=== PATIENT | female | born 1960 | race Two or more races ===

== ENCOUNTER 2023-01-01 08:48 | Observation (INO) ==
--- NOTE | 2022-11-09 09:16 | PAT Medication Instructions ---
Medication Instructions Date of Service November 09, 2022 Home Medications uonoq-w-kgdavniyvhcco 400 unit tablet (Beano) 400 unit PO 5XD PRN heartburn/indigestion aspirin 81 mg capsule 81 mg PO HS escitalopram oxalate 10 mg tablet (Lexapro) 10 mg PO HS fenofibrate nanocrystallized 145 mg tablet (Tricor) 145 mg PO QAM levothyroxine 50 mcg tablet (Synthroid) 50 mcg PO QAM lorazepam 0.5 mg tablet 0.5 mg PO BID PRN Anxiety metoprolol succinate 100 mg tablet,extended release 24 hr 100 mg PO QAM nifedipine 60 mg tablet,extended release 60 mg PO HS 0 trazodone 100 mg tablet 100 mg PO HS venlafaxine 150 mg capsule,extended release 24 hr 150 mg PO QDL Continue as directed venlafaxine 150 mg capsule,extended release 24 hr 150 mg PO QDL STOP taking 48 hours before surgery fenofibrate nanocrystallized 145 mg tablet (Tricor) 145 mg PO QAM DO NOT take the morning of surgery zodcp-d-oxoyrennidipo 400 unit tablet (Beano) 400 unit PO 5XD PRN heartburn/indigestion Take morning of surgery With a small sip of water, OTHERWISE NOTHING TO EAT OR DRINK AFTER MIDNIGHT: levothyroxine 50 mcg tablet (Synthroid) 50 mcg PO QAM lorazepam 0.5 mg tablet 0.5 mg PO BID PRN Anxiety (if needed) metoprolol succinate 100 mg tablet,extended release 24 hr 100 mg PO QAM Take evening before surgery ibceu-y-cdztklnjtaqdt 400 unit tablet (Beano) 400 unit PO 5XD PRN heartburn/indigestion (if needed) aspirin 81 mg capsule 81 mg PO HS (unless surgeon directed otherwise) escitalopram oxalate 10 mg tablet (Lexapro) 10 mg PO HS lorazepam 0.5 mg tablet 0.5 mg PO BID PRN Anxiety (if needed) nifedipine 60 mg tablet,extended release 60 mg PO HS trazodone 100 mg tablet 100 mg PO HS Other Notes If you have any questions please call us at [phone] or [phone] or [phone] or [phone]
--- NOTE | 2022-11-20 12:32 | Anesthesiology Consultation ---
Date of Service November 20, 2022 Assessment & Plan (1) Encounter for pre-operative examination: Plan - awaiting [facility] JEANE Polk cardiology response to optimization note. - pt reports is scheduled to have pacemaker battery replaced 12/2022 and is inquiring if surgery needs postponed until after pacemaker battery. Surgeon's office made aware, optimization note sent to cardiology. - Casiano pacemaker. - Outpatient joint assessment: Patient is currently scheduled for inpatient pathway. If re-evaluated pending system levels during current pandemic/surgeon requests outpatient pathway, patient is not recommended candidate for outpatient joint program from anesthesia standpoint, pt and her express they prefer she remain in hospital for overnight stay. Chart Review Chart Review: Pending: Refer to Additional Notes / Consult section and Patient seen in Pre Admission Testing Teaching & Discussion Pre-Anesthesia Teaching/Discussion Notes: Instructed NPO after midnight before surgery, except medications with 15 cc of water. Medication instructions provided according to the PAT guidelines. History Surgery Operation Date: 01/01/23 08:10 Proposed Procedures p Right Total Knee Arthroplasty - Brandyn Gallego DO Height/Weight Height: 4 ft 11 in Weight: 57.606 kg Allergies Allergy/AdvReac Type Severity Reaction Status Date / Time ibuprofen AdvReac Intermediate gastric Verified 11/08/22 14:21 ulcer Medications Home Medications Medication Instructions Recorded Confirmed Last Taken hcggx-d-ogtubduhsjaej 400 unit 400 unit PO 5XD PRN 11/08/22 11/08/22 Unknown tablet (Beano) heartburn/indigestion aspirin 81 mg capsule 81 mg PO HS 11/08/22 11/08/22 Unknown escitalopram oxalate 10 mg tablet 10 mg PO HS 11/08/22 11/08/22 Unknown (Lexapro) fenofibrate nanocrystallized 145 145 mg PO QAM 11/08/22 11/08/22 Unknown mg tablet (Tricor) levothyroxine 50 mcg tablet 50 mcg PO QAM 11/08/22 11/08/22 Unknown (Synthroid) lorazepam 0.5 mg tablet 0.5 mg PO BID PRN Anxiety 11/08/22 11/08/22 Unknown metoprolol succinate 100 mg 100 mg PO QAM 11/08/22 11/08/22 Unknown tablet,extended release 24 hr nifedipine 60 mg tablet,extended 60 mg PO HS 11/08/22 11/08/22 Unknown release trazodone 100 mg tablet 100 mg PO HS 11/08/22 11/08/22 Unknown venlafaxine 150 mg 150 mg PO QDL 11/08/22 11/08/22 Unknown capsule,extended release 24 hr Past Medical History Medical History Anxiety Depression Diverticular disease hx diverticulitis-last episode > 5 yrs ago GERD (gastroesophageal reflux disease) rare, stable per pt Hx of gastric ulcer r/t ibuprofen (~2016) Hyperlipidemia Hypertension variable per pt Hypothyroidism Pacemaker (st epifanio device) first placed ~2002 --> battery changed ~2012. last checked June [address] [facility]. follows with [facility]. reports she is scheduled for the battery change in December 2022. Patient denies h/o stroke, seizures, heart attack, heart failure, DM, blood clots or blood transfusions. Exercise / Class Metabolic Activity III < 4 Walking/Shop/Light housework (denies chest discomfort or shortness of breath with usual activities; shortness of breath with 1 FOS due to knee dysfunction) Past Family History Family History Other No family history of adverse response to anesthesia Past Surgical History Surgical History History of cataract surgery bilateral History of colonoscopy History of esophagogastroduodenoscopy (EGD) S/P cardiac pacemaker procedure ~2002 d/t dizziness & syncope + battery change done ~[address] [facility] S/P carpal tunnel release bilateral Past Anesthesia History No Hx of Anesthesia Complications and No Family Hx of Anesthesia Complications History of PONV No Hx of PONV and No Hx of Motion Sickness Social History Smoking Status: Never smoker tobacco type: smokeless tobacco Do You Dip or Chew Tobacco: Yes (quit in 2020) Hx Alcohol Use: No Hx Substance Use: No substance use type: does not use Review of Systems Mild snoring, denies witnessed apneas. Patient denies chest pain, reflux, fever, chills, cough, wheezing, or palpitations. Physical Exam Vital Signs Vitals BP 141/82 P 60 TEMP 98.5 SP02 98% on RA RESP 17 Physical Full cervical extension range of motion without pain TMD 3.5 finger breadths Mallampati Score 2 Dentition: repaired front upper tooth, denies chipped or loose teeth, caps/crowns, implants or bridges Lungs: normal respiratory effort. Good air movement, clear throughout to auscultation, no adventitious breath sounds Cardiac: regular rate and rhythm, no murmurs noted Carotid arteries: negative bruit bilat Lab Results Anesthesia Preop Results Results Anesthesia Widget: WBC 6.04 K/ul (4.8-10.8) 11/20/22 Hgb 11.5 g/dl (12.0-16.0) L 11/20/22 Hct 34.5 % (37.0-47.0) L 11/20/22 Plt 529 K/uL (130-400) H 11/20/22 Na 136 mmol/L (136-145) 11/20/22 K 4.6 mmol/L (3.5-5.1) 11/20/22 Cl 106 mmol/L (98-107) 11/20/22 CO2 25 mmol/L (21-32) 11/20/22 BUN 27 mg/dl (6-23) H 11/20/22 Creat 0.93 mg/dl (0.6-1.2) 11/20/22 Glucose Level 104 mg/dl (70-99(Fasting)) H 11/20/22 PT 10.5 Seconds (9.0-12.0) 11/20/22 PTT 26.7 Seconds (21.0-31.0) 11/20/22 INR 1.0 (0.9-1.1) 11/20/22 Blood Type B Positive 11/20/22 Antibody Screen NEGATIVE 11/20/22 Testing Electrocardiogram Date: 11/21/22 Atrial paced rhythm, rate 60 bpm Chest X-Ray Date: 11/20/22 1. No active disease in the chest. 2. A cardiac pacemaker is in place. There is no radiographic evidence of congestive failure. Other Testing Pacemaker report 09/26/22 Casiano Mode DDDR AP 43% YARD ASSISTANT < 1% PMT has occurred COVID-19 Risk Screen Screening Information COVID-19 Screen Date: 11/20/22 Exposure 21 Days Family/Household +COVID Last 21 Days: No Exposure 10 Days Any COVID Exposure Last 10 Days: No Symptoms Last 10 Days Experienced COVID Sx Last 10 Days: No + COVID 0-90 Days COVID + in Last 0-90 Days: No
--- NOTE | 2022-12-26 17:15 | History & Physical Report ---
Date of Service December 26, 2022 Assessment & Plan (1) Osteoarthritis of right knee: We will proceed with a right total knee arthroplasty. Postoperatively she will be started on aspirin for DVT prophylaxis and kept overnight in the hospital for postop medical management. She plans to have the hospital set up home health before discharge. History of Present Illness Chief Complaint: Osteoarthritis of the right knee. Primary Care Provider: Arsh Tavarez M.D. Faviola is a pleasant 62-year-old female who is been doing with chronic increasing right knee pain. X-rays and clinical examination been diagnostic for advanced osteoarthritis of the right knee. After failing conservative treatment, she has elected to proceed with a right total knee arthroplasty.. Allergies Allergy/AdvReac Type Severity Reaction Status Date / Time ibuprofen AdvReac Intermediate gastric Verified 11/08/22 14:21 ulcer Home Medications Medication Instructions Recorded Confirmed Type pffun-n-dnnhqvsbjrtcw 400 unit 400 unit PO 5XD PRN 11/08/22 11/08/22 History tablet (Beano) heartburn/indigestion aspirin 81 mg capsule 81 mg PO HS 11/08/22 11/08/22 History escitalopram oxalate 10 mg tablet 10 mg PO HS 11/08/22 11/08/22 History (Lexapro) fenofibrate nanocrystallized 145 145 mg PO QAM 11/08/22 11/08/22 History mg tablet (Tricor) levothyroxine 50 mcg tablet 50 mcg PO QAM 11/08/22 11/08/22 History (Synthroid) lorazepam 0.5 mg tablet 0.5 mg PO BID PRN Anxiety 11/08/22 11/08/22 History metoprolol succinate 100 mg 100 mg PO QAM 11/08/22 11/08/22 History tablet,extended release 24 hr nifedipine 60 mg tablet,extended 60 mg PO HS 11/08/22 11/08/22 History release trazodone 100 mg tablet 100 mg PO HS 11/08/22 11/08/22 History venlafaxine 150 mg 150 mg PO QDL 11/08/22 11/08/22 History capsule,extended release 24 hr Past Med/Surg History Medical History Anxiety Depression Diverticular disease hx diverticulitis-last episode > 5 yrs ago GERD (gastroesophageal reflux disease) rare, stable per pt Hx of gastric ulcer r/t ibuprofen (~2016) Hyperlipidemia Hypertension variable per pt Hypothyroidism Pacemaker (st epifanio device) first placed ~2002 --> battery changed ~2012. last checked June 2022 at [facility]. follows with [facility]. reports she is scheduled for the battery change in December 2022. Surgical History History of cataract surgery bilateral History of colonoscopy History of esophagogastroduodenoscopy (EGD) S/P cardiac pacemaker procedure ~2002 d/t dizziness & syncope + battery change done ~2012 at [facility] S/P carpal tunnel release bilateral Family History Other No family history of adverse response to anesthesia Social History Smoking Status: Never smoker Second Hand Exposure: No; Do You Dip or Chew Tobacco: Yes (quit in 2020); Hx Alcohol Use: No Hx Substance Use: No Preferred Language: Guamanian Communication Ability: Effective Molecular Physicist Required: No Beliefs That Will Affect Care: Scientology Scientology Beliefs: Orthodoxy -> no pork, no meat/chicken (does eat fish/vegetable) Current Living Situation: Spouse Feels Safe at Home: Yes Assistive Devices: Cane Review of Systems All systems reviewed & are unremarkable except as noted in HPI & below. Physical Exam Physical examination of the right knee shows she has a slight varus deformity. She has range of motion 0 to 120 degrees. She has pain over the distal medial femoral condyle and over the medial joint line.. Constitutional WD/WN, vitals as above Eyes PERRL, conjunctivae normal, anicteric sclerae ENMT external ear and nose normal, oropharynx normal Neck trachea midline, no thyromegaly Respiratory normal respiratory effort, lungs clear to auscultation Cardiovascular RRR, no murmur, no edema Gastrointestinal (Abdomen) normal bowel sounds, soft, nontender, no hepatosplenomegaly Skin no rashes, warm and dry Psychiatric A+Ox3, euthymic affect Results & Data Results & Data Laboratory Results . Diagnostic Findings X-rays of the right knee show advanced osteoarthritis with joint space narrowing, osteophyte formation, and fpgl-[id number] articulation. PG Care Time/CCT Total # of Minutes Spent Total Time Spent with Patient: Total time spent is greater than 50% in coordination of care (as documented) at patient's floor/unit and/or counseling patient: Coding Level of Care Code None Diagnoses Osteoarthritis of right knee M17.11
[~2023-01-01 08:48] MED LIST: ACETAMINOPHEN 500 MG TAB PO SCH; FAMOTIDINE 20 MG TAB PO SCH; GABAPENTIN 300 MG CAP PO SCH; LR 500ML BOLUS, THEN 15ML/HR IV SCH; LR 60ML/HR IV SCH; ORTHO JOINT MIX INFIL SCH; ROPIVACAINE 0.5% 5 MG/ML 30 ML VIAL ONE; TRANEXAMIC ACID 1,000 MG **IV Intra-op IV SCH; ceFAZolin 2000MG 2,000 MG/15 ML SYR IV SCH; dexAMETHasone 4 MG TAB PO SCH
--- NOTE | 2023-01-01 10:26 | History & Physical Bridge Note ---
Date of Service January 01, 2023 History & Physical Bridge Note I have examined the patient, reviewed the History & Physical and in the interval since the performance of the History & Physical I have noted the following changes of clinical significance: no changes noted
[2023-01-01] MEDS ORDERED: ePHEDrine sulfate 50 MG/ML AMP IV PRN (10:36)
[2023-01-01] MEDS ORDERED: HYDROmorphone INJ 2 MG/ML SYR/VIAL IV PRN (10:36)
[2023-01-01] MEDS ORDERED: fentaNYL citrate PF 100 MCG/2 ML VIAL IV PRN (10:36)
[2023-01-01] MEDS ORDERED: ATROPINE SULFATE 0.1 MG/ML 10ML SYR IV PRN (10:36)
[2023-01-01] MEDS ORDERED: ONDANSETRON INJ 2 MG/ML 2 ML VIAL IV PRN ×2 (10:36→14:54)
[2023-01-01] MEDS ORDERED: MIDAZOLAM HCL 1 MG/ML 2ML VIAL ONE ×2 (10:54)
[2023-01-01] MEDS ORDERED: PROPOFOL IV EMULSION 10 MG/ML 20 ML VIAL IV ONE (10:54)
[2023-01-01] MEDS ORDERED: LIDOCAINE 2% 2 ML VIAL/AMP(20MG/ML) INFIL ONE (10:54)
[2023-01-01] MEDS ORDERED: fentaNYL citrate PF 100 MCG/2 ML VIAL ONE (10:54)
[2023-01-01] MEDS: TRANEXAMIC ACID 1,000 MG **IV Pre-op IV SCH ×2 (11:13→11:25)
[2023-01-01] MEDS ORDERED: ORTHO JOINT ANESTHETIC ONE (11:21)
[2023-01-01] MEDS ORDERED: ePHEDrine sulfate 50 MG/ML AMP ONE (11:55)
--- NOTE | 2023-01-01 12:40 | Operative Report ---
PG Post Operative Report Pre & Post Diagnosis Operation Date: 01/01/23 11:00 Pre-Op Diagnosis: 1) Osteoarthritis of right knee: Post-Op Diagnosis: 1) Osteoarthritis of right knee: I identified the patient and participated in the time-out.: Yes Procedure Operation Date: 01/01/23 11:00 Actual Procedures p Right Total Knee Arthroplasty(Right) - Brandyn Gallego DO Surgeon Brandyn Gallego DO Service Order Dispatcher Brandyn Bustos PA-C Estimated Blood Loss 30 Findings Consistent with Post-Op Diagnosis Specimens Right femoral tibial bone Description of Procedure Implants used: I used a Francisca Persona total knee arthroplasty system with a size 4 narrow femur, C tibia, 28 oval patella, and a size 13 medial congruent polyethylene bearing. All components were cemented in place with Biomet cement. Brissa arrived [facility] for the above procedure. She was seen in the preoperative holding area and the operative extremity was identified and signed. She was given a preoperative antibiotic, TXA, a spinal anesthetic and an adductor nerve block. She was taken back to the operating room and laid on the table in supine position. She was given basic sedation. The operative knee was then prepped and draped in sterile fashion. A timeout was done, and the patient and the operative extremity was properly identified. A midline incision was made directly over the patella. Dissection was taken down to the extensor mechanism. A midvastus arthrotomy was used. The medial retinaculum was released and the fat pad was mostly excised. The knee was flexed and the ACL, PCL, and meniscus were removed. A drill was sent down the center of the femoral canal followed by an intramedullary olivia. Off that olivia a distal femoral cutting block was placed. 9 mm was resected off the distal femur at 5 of valgus. A posterior referencing AP sizing guide was then placed on the distal femur. The femur measured to be a size 4. 2 drill holes were placed in 3 of external rotation. A 4-in-1 cutting block was then impacted into place. Anterior, posterior, and chamfer cuts were then made. The proximal tibia was then exposed. An external tibial alignment guide was placed. A tibial cut guide was then anchored in place and the proximal tibia was then resected. The posterior aspect of the knee was then opened up and any additional meniscus fragments and osteophytes were removed. The tibia measured to be a size C. The tibial plate was then placed in the appropriate rotation and the tibia was drilled and punched. Trial components were then placed. I used a size 13 medial congruent polyethylene insert. The knee was brought through a full range of motion and felt to be stable. The peg holes for the femoral component were then drilled. The patella was then everted and 9 mm was resected off the posterior aspect of the patella. The patella measured to be a size 28 oval. 3 peg holes were then drilled. A trial patella was placed. The knee was once again brought through a full range of motion and felt to be stable. Trial components were then removed. The surrounding soft tissues were injected with 100 cc of an orthopedic pain control cocktail. All components were then cemented into place with Biomet cement. The final polyethylene insert was then snapped into place. Once cement was dry the tourniquet was deflated. Hemostasis was obtained. A dilute betadyne lavage was then done for 3 minutes. The joint was then irrigated with normal saline solution. The midvastus arthrotomy was then closed with #1 Vicryl suture. The skin was closed with 2-0 Vicryl, 3-0V lock suture, and clif. A soft compressive dressing was placed. She was then transferred to a hospital bed and taken to the postanesthesia care unit in stable condition. She tolerated the procedure well. Brandyn Bustos PA-C, was present for the entire procedure. He was critical for patient positioning, prepping, draping, retraction exposure, wound closure and application of sterile dressing. I attest to the content of the Intraoperative Record and any orders documented therein. Any exceptions are noted below.
--- NOTE | 2023-01-01 13:29 | XRay Report ---
TWO VIEWS RIGHT KNEE CLINICAL HISTORY: Postoperative examination. FINDINGS: AP and crosstable lateral portable views of the right knee are obtained. A right knee arthr oplasty is in near anatomic alignment. There has been undersurface remodeling of the patella. No acut e fracture is seen. There are expected postoperative changes around the knee including skin clips, so ft tissue edema, and subcutaneous gas. IMPRESSION: Expected postoperative changes status post right knee arthroplasty. No acute fracture is seen. ACT 112: Negative or not required by law. Electronically signed by: Juan M Rothman M.D. 01/01/2023 1:28 PM
--- NOTE | 2023-01-01 13:51 | Anesthesiology Progress Note ---
Date of Service January 01, 2023 Anesthesia Post Procedure Vital Signs Vital Signs: Temp Pulse Resp BP Pulse Ox O2 Del Method O2 Flow Rate 01/01/23 13:40 71 20 108/60 92 Room Air 01/01/23 13:30 36.4 C L 68 19 106/57 L 92 Room Air 01/01/23 13:20 68 19 109/58 L 97 Room Air 01/01/23 13:10 68 19 103/55 L 96 Oxymask 6 01/01/23 13:02 36.1 C L 68 20 103/58 L 94 Oxymask 6 01/01/23 09:48 36.5 C 60 18 123/67 98 Room Air Pain Intensity Right Knee: Pain Intensity: 8 Transfer of Care Handoff Completed per policy Notes Mental Status: alert / awake / arousable and participated in evaluation Patient Amnestic to Procedure: Yes Nausea / Vomiting: adequately controlled Pain: adequately controlled Airway Patency, RR, SpO2: stable & adequate BP & HR: stable & adequate Hydration State: stable & adequate Neuraxial Anesthesia: was administered and sensory block is resolving Anesthetic Complications: no major complications apparent and Pt Satisfied with anesthetic care
[2023-01-01] MEDS ORDERED: MAGNESIUM HYDROXIDE SUSP 30 ML UDC PO PRN (14:54)
[2023-01-01] MEDS ORDERED: HYDROmorphone INJ 0.5 MG/0.5 ML SYR IV PRN (14:54)
[2023-01-01] MEDS ORDERED: METOCLOPRAMIDE HCL INJ 5 MG/ML 2 ML VIAL IV PRN (14:54)
[2023-01-01] MEDS ORDERED: NALOXONE HCL 0.4 MG/1 ML VIAL/CARP IV PRN (14:54)
[2023-01-01] MEDS ORDERED: oxyCODONE HCL IR 5 MG TAB (IMMEDIATE RELEASE) PO PRN (14:54)
[2023-01-01] MEDS ORDERED: bisacodyL 10 MG SUPP PR PRN (14:54)
[2023-01-01] MEDS ORDERED: LORazepam 0.5 MG TAB PO PRN (14:54)
[2023-01-01] MEDS: SODIUM CHLORIDE 0.9% 1000ML 1,000 ML IV SCH (15:09)
[2023-01-01] MEDS: ACETAMINOPHEN 500 MG TAB PO SCH ×2 (15:45→21:52)
[2023-01-01] MEDS: KETOROLAC 30 MG/ML VIAL IV SCH (15:46)
[2023-01-01] MEDS: ceFAZolin 2000MG 2,000 MG/15 ML SYR IV SCH (18:25)
[2023-01-01] MEDS: DOCUSATE SODIUM 100 MG CAP PO SCH (20:23)
[2023-01-01] MEDS: ASPIRIN 81 MG ECTAB PO SCH (20:23)
[2023-01-01] MEDS ORDERED: ESCITALOPRAM OXALATE 10 MG TAB PO SCH (21:00)
[2023-01-01] MEDS ORDERED: NIFEdipine EXTENDED REL 30 MG TABCR PO SCH (21:00)
[2023-01-01] MEDS ORDERED: traZODone HCL 100 MG TAB PO SCH (21:00)
[2023-01-01] MEDS ORDERED: SENNA 8.6 MG TAB PO SCH (21:00)
[2023-01-02] MEDS: KETOROLAC 30 MG/ML VIAL IV SCH ×2 (00:45→06:11)
[2023-01-02] MEDS: SODIUM CHLORIDE 0.9% 1000ML 1,000 ML IV SCH (00:45)
[2023-01-02] MEDS: ceFAZolin 2000MG 2,000 MG/15 ML SYR IV SCH (03:44)
[2023-01-02] MEDS: ACETAMINOPHEN 500 MG TAB PO SCH (06:11)
[2023-01-02] MEDS ORDERED: LEVOTHYROXINE SODIUM 50 MCG TABLET PO SCH (06:30)
--- NOTE | 2023-01-02 07:03 | Orthopedic Progress Note ---
Date of Service January 02, 2023 Assessment & Plan (1) Status post right knee replacement: Overall she is doing very well. She is not having much pain in the right knee. She will be seen by physical therapy today for ambulation and range of motion exercises. She is on aspirin for DVT prophylaxis. The nursing staff can change her dressing after physical therapy. She does want to talk to case management about discharge. She is likely orthopedically stable for discharge today. She will follow-up with orthopedics in 2 weeks. Nitin Salmeron was seen and examined at bedside this morning. Overall she is doing very well. She is not having much pain in the right knee. She has been up and ambulating to the bathroom. She has no complaints.. Review of Systems All systems reviewed & are unremarkable except as noted in HPI & below. Physical Exam On physical examination of the right knee, the dressing is clean and dry. Her leg is out full extension. She has active dorsiflexion plantarflexion of her right ankle.. Results & Data Results & Data Laboratory Results . Diagnostic Findings Postoperative x-rays of the right knee show the prosthesis to be in anatomic alignment without any evidence of fracture, desiccation, or loosening. PG Care Time/CCT Total # of Minutes Spent Total Time Spent with Patient: Total time spent is greater than 50% in coordination of care (as documented) at patient's floor/unit and/or counseling patient: Coding Level of Care Code 09332 Post Operative Follow-Up Diagnoses Status post right knee replacement Z96.651
--- NOTE | 2023-01-02 07:04 | Discharge Summary ---
Date of Service January 02, 2023 Admission HPI (Per Admitting) Faviola is a pleasant 62-year-old female who is been doing with chronic increasing right knee pain. X-rays and clinical examination been diagnostic for advanced osteoarthritis of the right knee. After failing conservative treatment, she has elected to proceed with a right total knee arthroplasty.. Admission Exam (Per Admitting) Physical examination of the right knee shows she has a slight varus deformity. She has range of motion 0 to 120 degrees. She has pain over the distal medial femoral condyle and over the medial joint line.. Principal Diagnosis Same as "Discharge Diagnosis" noted below under Discharge Instructions. Discharge Exam On physical examination of the right knee, the dressing is clean and dry. Her leg is out full extension. She has active dorsiflexion plantarflexion of her right ankle.. Discharge Data Procedures Performed Operation Date: 01/01/23 11:00 Actual Procedures p Right Total Knee Arthroplasty(Right) - Brandyn Gallego DO Ordered Studies 01/01/23 11:27 US - OR guided needle placemen Routine Hospital Course (1) Status post right knee replacement: On January 01, 2023 Brissa arrived at [facility] and underwent a right knee replaced without complication. She had a spinal anesthetic. Postoperatively she was started on aspirin for DVT prophylaxis and transferred to the general orthopedic floors. Her hospital course was uneventful. On postop day #1, her vital signs were stable and her pain was well-controlled. She was able to participate well with physical therapy doing ambulation and range of motion exercises. She was then discharged home. She will follow-up orthopedics in 2 weeks. PG Care Time/CCT Total # of Minutes Spent Total Time Spent with Patient: Total time spent is greater than 50% in coordination of care (as documented) at patient's floor/unit and/or counseling patient: Discharge Plan Discharge Items Patient Disposition: Home - Home Health Services Reason For Visit: DJD Right Knee Discharge Diagnosis: Right knee replacement Activity: Per Instructions section Non-emergency contact: Surgeon Call non-emergency contact if: your wound has increased redness and your wound has increased drainage Follow-up/Referrals: Arsh Tavarez M.D. [Primary Care Provider] - Diet: Regular Addtl Attending Provider Instructions: Activity and Therapy Recommendations: * If you are using [facility] then therapy will be provided at your home until they feel you have accomplished all of your goals. * If you are using [facility] then Physical Therapy will be provided until they feel you are ready to start Outpatient Physical Therapy. * If you are not using home therapy then Outpatient Physical Therapy should start about 3-5 days from your day of surgery. Therapy will last about 6-10 weeks * It is important not to put a pillow under your knee when you are relaxing or sleeping. It is just as important to make sure you are getting your knee perfectly straight as it is to regain your knee bend. * You were shown a series of exercises in the hospital. Do these exercises three times each day including the exercises you were shown in physical therapy. * Get up and walk several times each day. For the first four weeks, try not to stand or walk for more than one hour at a time. If you do stand or walk for more than one hour, you will not hurt anything, but your leg will likely swell. * As you feel comfortable, you may change from the walker or crutches to a cane and then to independent walking. Medications: * Narcotic You will likely be sent home from the hospital with a prescription for the narcotic pain medication that worked best throughout your stay. * Aspirin Most patients will be required to take Aspirin 81mg twice a day for 6 weeks after surgery. This is obtained [id number] and a prescription is not necessary. * Other medications may be prescribed for specific circumstances. If you have any questions, please call the office at . * Resume previous home medications unless otherwise instructed TEDs/Elastic Stockings: The white elastic stockings help limit swelling and prevent blood clots from forming in your legs.~ The more you wear them, the more they work. Wear them for six weeks. Dressing Care: The dressing can be changed after physical therapy on postop day #1. Daily dry dressing changes for a few days, especially if the incision is still draining some. If the incision is not draining then you may leave the clif open to air. If there is a little bit of drainage or if the clif are getting stuck on your clothing then cover the incision with a dry dressing. The clif will be removed at your 2 week follow-up appointment. Showering: You may shower 5 days from the day of surgery as long as the incision is no longer draining. You may shower with the clif exposed. Let soapy water run over the clif and pat them dry. Do not scrub or soak the incision. Things To Watch For: * Drainage from the incision site that occurs more than one week after your surgery. * Increased redness at the incision site. * Fever above 102 degrees Fahrenheit. * Unusual chest pain or shortness of breath. * Call [facility] at with any of the above problems Follow-Up Visit: Follow-up with Dr. Gallego's PA (Brandyn Bustos) 2-3 weeks after your day of surgery . He will remove your clif and answer any questions. If you have any additional questions or concerns, Dr Gallego is usually in the office at the same time and will be available An appointment was probably scheduled when you signed-up for surgery in the office. If you have any questions call Office Instructions: More detailed instructions as well as Frequently Asked Questions were provided in a folder by our office when you signed-up for surgery. Please review these instructions when you get home. If you have any further questions or concerns, please feel free to call the office at [phone] Pending Studies at Discharge: No Stand-Alone Forms: My [facility], Smoking Cessation Medications and DC Order Prescriptions: New oxycodone 5 mg Tablet 5 mg PO Q4H PRN (Reason: pain) Qty: 30 0RF Continued Beano 400 unit Tablet 400 unit PO 5XD PRN (Reason: heartburn/indigestion) venlafaxine [Effexor XR] 150 mg Capsule,Extended Release 24hr 150 mg PO QDL lorazepam 0.5 mg Tablet 0.5 mg PO BID PRN (Reason: Anxiety) trazodone 100 mg Tablet 100 mg PO HS levothyroxine [Synthroid] 50 mcg Tablet 50 mcg PO QAM escitalopram oxalate [Lexapro] 10 mg Tablet 10 mg PO HS fenofibrate nanocrystallized [Tricor] 145 mg Tablet 145 mg PO QAM metoprolol succinate 100 mg Tablet Extended Release 24 Hr 100 mg PO QAM nifedipine 60 mg Tablet Extended Release 60 mg PO HS Changed aspirin 81 mg Capsule 81 mg PO BID 42 Days Qty: 0 0RF Admission Data Admit Date/Time: 01/01/23 13:11 Attending Provider: Brandyn Gallego Admit Provider: Brandyn Gallego Primary Care Provider: Arsh Tavarez
[2023-01-02] MEDS ORDERED: dexAMETHasone 4 MG TAB PO SCH (08:00)
[2023-01-02] MEDS: DOCUSATE SODIUM 100 MG CAP PO SCH (08:12)
[2023-01-02] MEDS: ASPIRIN 81 MG ECTAB PO SCH (08:13)
[2023-01-02] MEDS ORDERED: MULTIVITAMIN TAB PO SCH (09:00)
[2023-01-02] MEDS ORDERED: METOPROLOL SUCC 50MG EXT REL TAB PO SCH (09:00)
[2023-01-02] MEDS ORDERED: FENOFIBRATE NANOCRYSTALLIZED 145 MG TABLET PO SCH (09:00)
[2023-01-02] MEDS ORDERED: VENLAFAXINE HCL XR 150 MG CAPXR PO SCH (11:30)
== END 2023-01-02 12:24 | disposition home health service (06) ==
LOC: ASU 08:48 → 3E 08:48

== ENCOUNTER 2025-01-16 05:25 | Observation (INO) ==
--- NOTE | 2024-12-15 15:31 | PAT Medication Instructions ---
Medication Instructions Date of Service December 15, 2024 Home Medications Medication Instructions Recorded aspirin 81 mg capsule 81 mg PO BID 42 days #0 caps 01/02/23 oxycodone 5 mg tablet 5 mg PO Q4H PRN pain #30 tabs 01/02/23 Medication List: wsihe-y-bsrtjsgazyoeq 400 unit tablet (Beano) 400 unit PO 5XD PRN heartburn/indigestion escitalopram oxalate 10 mg tablet (Lexapro) 10 mg PO HS fenofibrate nanocrystallized 145 mg tablet (Tricor) 145 mg PO QAM levothyroxine 50 mcg tablet (Synthroid) 50 mcg PO QAM lorazepam 0.5 mg tablet 0.5 mg PO BID PRN Anxiety metoprolol succinate 100 mg tablet,extended release 24 hr 100 mg PO QAM nifedipine 60 mg tablet,extended release 60 mg PO HS trazodone 100 mg tablet 100 mg PO HS venlafaxine 150 mg capsule,extended release 24 hr (Effexor XR) 150 mg PO QDL aspirin 81 mg capsule 81 mg PO BID oxycodone 5 mg tablet 5 mg PO Q4H PRN pain MEDICATION INSTRUCTIONS: ASK your prescriber and surgeon aspirin 81 mg capsule 81 mg PO BID STOP taking 24 hours before surgery fenofibrate nanocrystallized 145 mg tablet (Tricor) 145 mg PO QAM DO NOT take the morning of surgery ujqou-n-zmnebqmubvith 400 unit tablet (Beano) 400 unit PO 5XD PRN heartburn/indigestion Take morning of surgery With a small sip of water, OTHERWISE NOTHING TO EAT OR DRINK AFTER MIDNIGHT: levothyroxine 50 mcg tablet (Synthroid) 50 mcg PO QAM metoprolol succinate 100 mg tablet,extended release 24 hr 100 mg PO QAM venlafaxine 150 mg capsule,extended release 24 hr (Effexor XR) 150 mg PO QDL ( depending on timing of surgery) lorazepam 0.5 mg tablet 0.5 mg PO BID PRN Anxiety oxycodone 5 mg tablet 5 mg PO Q4H PRN pain Take evening before surgery leuml-o-bbkhxxploffwc 400 unit tablet (Beano) 400 unit PO 5XD PRN heartburn/indigestion nifedipine 60 mg tablet,extended release 60 mg PO HS escitalopram oxalate 10 mg tablet (Lexapro) 10 mg PO HS trazodone 100 mg tablet 100 mg PO HS lorazepam 0.5 mg tablet 0.5 mg PO BID PRN Anxiety oxycodone 5 mg tablet 5 mg PO Q4H PRN pain Other Notes If you have any questions please call us at [phone] or [phone] or [phone] or [phone]
--- NOTE | 2024-12-23 12:33 | Anesthesiology Consultation ---
Date of Service December 23, 2024 Assessment & Plan (1) Encounter for pre-operative examination: - Infectious disease screening: Per assessment on 12/23/24- No known recent infectious disease contacts or current infectious disease symptoms. - Outpatient joint assessment: Pt currently scheduled for inpatient pathway. If surgeon requests review for outpatient joint pathway, patient is not a recommended candidate for outpatient joint program from anesthesia standpoint based on available information. - S/P Right TKA (01/01/23): SAB at L3-4 + regional at [facility] - Cardiology visit (01/24/24): "..She is anticipating a left total knee replacement in June 2024. Proceeding her knee replacement.. Pacemaker checked.. was approaching ROMEO.. Did eventually undergo a generator change.. Since then she has continued to do well.. There were no alerts on her last download.. HTNwellcontrolled.. Return in about 1 year.." Chart Review Chart Review: Acceptable Risk for Surgery and Patient seen in Pre Admission Testing Teaching & Discussion Pre-Anesthesia Teaching/Discussion Notes: Instructed NPO after midnight before surgery,except medications with 15 cc of water. Medication instructions provided according to the PAT guidelines. History Surgery Operation Date: 09/24/23 07:30 Proposed Procedures p Left Total Knee Arthroplasty - Brandyn Gallego DO Operation Date: 01/16/25 07:00 Proposed Procedures p Left Total Knee Arthroplasty - Brandyn Gallgeo DO Height/Weight Height: 4 ft 10 in Weight: 54.5 kg Allergies Allergy/AdvReac Type Severity Reaction Status Date / Time ibuprofen AdvReac Intermediate Gastric Verified 12/17/24 10:13 ulcer Medications Home Medications Medication Instructions Recorded Confirmed Last Taken ebycf-e-tnwhyhuhmlhbq 400 unit 400 unit PO 5XD PRN 11/08/22 12/15/24 2 Weeks Ago tablet (Beano) heartburn/indigestion ~12/18/22 escitalopram oxalate 10 mg tablet 10 mg PO HS 11/08/22 12/15/24 12/31/22 20:30 (Lexapro) fenofibrate nanocrystallized 145 145 mg PO QAM 11/08/22 12/15/24 01/01/23 06:30 mg tablet (Tricor) levothyroxine 50 mcg tablet 50 mcg PO QAM 11/08/22 12/15/24 01/01/23 05:00 (Synthroid) lorazepam 0.5 mg tablet 0.5 mg PO BID PRN Anxiety 11/08/22 12/15/24 12/31/22 20:30 metoprolol succinate 100 mg 100 mg PO QAM 11/08/22 12/15/24 01/01/23 06:30 tablet,extended release 24 hr nifedipine 60 mg tablet,extended 60 mg PO HS 11/08/22 12/15/24 12/31/22 20:30 release trazodone 100 mg tablet 100 mg PO HS 11/08/22 12/15/24 12/31/22 20:30 venlafaxine 150 mg 150 mg PO QDL 11/08/22 12/15/24 12/31/22 20:30 capsule,extended release 24 hr (Effexor XR) aspirin 81 mg capsule 81 mg PO BID 42 days #0 caps 01/02/23 12/15/24 3 Days Ago ~12/29/22 oxycodone 5 mg tablet 5 mg PO Q4H PRN pain #30 tabs 01/02/23 12/15/24 Unknown Past Medical History Medical History Anxiety Depression Diverticular disease GERD (gastroesophageal reflux disease) Rare, stable per patient History of diverticulitis Hx of gastric ulcer R/t ibuprofen (~2016) Hyperlipidemia Hypertension "Variable" per patient Follows [facility] Hypothyroidism Osteoarthritis Pacemaker [employer] device Initial implant 2002, battery change ~2012, Generator change 2022 Follows [facility] Exercise / Class Metabolic Activity III < 4 Walking/Shop/Light housework Past Family History Family History Other No family history of adverse response to anesthesia Past Surgical History Surgical History History of cataract surgery R/L History of colonoscopy History of esophagogastroduodenoscopy (EGD) S/P cardiac pacemaker procedure Initial implant 2002 Battery change ~2012 Generator change 2022 S/P carpal tunnel release R/L Status post right knee replacement Right TKA (01/01/23): SAB at L3-4 + regional at [facility] Past Anesthesia History No Hx of Anesthesia Complications and No Family Hx of Anesthesia Complications History of PONV No Hx of PONV and No Hx of Motion Sickness Social History Smoking Status: Never smoker tobacco type: smokeless tobacco Do You Dip or Chew Tobacco: No (Quit 2020 (tobacco leaf)) Hx Alcohol Use: No Hx Substance Use: No substance use type: does not use Review of Systems Patient denies chest pain, shortness of breath, fever, chills, cough, wheezing, palpitations. Physical Exam Vital Signs BP 146/68 P 62 TEMP 98.2 SP02 95%RA RESP 16 Physical Full cervical extension range of motion. Full TMJ range of motion. TMD 3 finger breaths Mallampati Score II Dentition: intact Lungs: clear throughout to auscultation Cardiac: regular rate, regular rhythm with occasional extra beats, no murmurs noted Spine: normal Carotid arteries: negative bruit Extremities: no LE edema Lab Results Anesthesia Preop Results Results Anesthesia Widget: WBC 6.25 K/ul (4.8-10.8) 12/23/24 Hgb 12.9 g/dl (12.0-16.0) 12/23/24 Hct 38.1 % (37.0-47.0) 12/23/24 Plt 455 K/uL (130-400) H 12/23/24 Na 139 mmol/L (136-145) 12/23/24 K 4.7 mmol/L (3.5-5.1) 12/23/24 Cl 106 mmol/L (98-107) 12/23/24 CO2 25 mmol/L (21-32) 12/23/24 BUN 16 mg/dl (6-23) 12/23/24 Creat 0.88 mg/dl (0.6-1.2) 12/23/24 Glucose Level 84 mg/dl (70-99(Fasting)) 12/23/24 PT 10.4 Seconds (9.0-12.0) 12/23/24 PTT 26 Seconds (21-31) 12/23/24 INR 1.0 (0.9-1.1) 12/23/24 Blood Type B Positive 12/23/24 Antibody Screen NEGATIVE 12/23/24 Testing Electrocardiogram Date: 12/23/24 Atrial-paced rhythm. 60bpm. Chest X-Ray Date: 12/23/24 FINDINGS: A left subclavian pacer is unchanged in position. There is no pneumothorax or pleural effusion. Linear left lower lung densities are unchanged and favor scarring. There is no consolidation to suggest pneumonia. No evidence for pulmonary edema. Cardiomediastinal silhouette is stable. IMPRESSION: No acute cardiopulmonary findings. No change in appearance of the chest. Echocardiogram Date: 12/27/22 LVEF 55-60%. No RWMA. Grade I DD. No LVH. Mild AR. Physiologic HI. Other Testing Pacer check Date: 10/04/24 Battery longevity 53-5.9 years. RAP 72%. RVP 1%. "Appropriate device function"
[~2025-01-16 05:25] MED LIST changes: -ACETAMINOPHEN 500 MG TAB PO SCH; -FAMOTIDINE 20 MG TAB PO SCH; -GABAPENTIN 300 MG CAP PO SCH; +LIDOCAINE 5% OINT 30 GM TUBE ONE; -LR 500ML BOLUS, THEN 15ML/HR IV SCH; -LR 60ML/HR IV SCH; -ORTHO JOINT MIX INFIL SCH; -ROPIVACAINE 0.5% 5 MG/ML 30 ML VIAL ONE; -TRANEXAMIC ACID 1,000 MG **IV Intra-op IV SCH; -ceFAZolin 2000MG 2,000 MG/15 ML SYR IV SCH; -dexAMETHasone 4 MG TAB PO SCH
[2025-01-16] MEDS: LR 60ML/HR IV SCH (06:01)
[2025-01-16] MEDS: LR 500ML BOLUS, THEN 15ML/HR IV SCH (06:01)
[2025-01-16] MEDS: GABAPENTIN 300 MG CAP PO SCH (06:02)
[2025-01-16] MEDS: ACETAMINOPHEN 500 MG TAB PO SCH ×2 (06:02→13:11)
[2025-01-16] MEDS: FAMOTIDINE 20 MG TAB PO SCH (06:02)
[2025-01-16] MEDS: dexAMETHasone**PF** 10 MG/ML VIAL IV SCH (06:02)
[2025-01-16] MEDS ORDERED: BUPIVACAINE 0.25% PF 30 ML VIAL ONE (06:12)
[2025-01-16] MEDS ORDERED: BUPIVACAINE 0.5 % 5 MG/1 ML PF 10ML VIAL ONE (06:13)
[2025-01-16] MEDS ORDERED: ONDANSETRON INJ 2 MG/ML 2 ML VIAL ONE (06:23)
[2025-01-16] MEDS ORDERED: PROPOFOL IV EMULSION 10 MG/ML 20 ML VIAL IV ONE (06:23)
[2025-01-16] MEDS ORDERED: LIDOCAINE 2% 2 ML VIAL/AMP(20MG/ML) INFIL ONE (06:23)
[2025-01-16] MEDS ORDERED: MIDAZOLAM HCL 1 MG/ML 2ML VIAL ONE (06:23)
[2025-01-16] MEDS ORDERED: ATROPINE SULFATE 0.1 MG/ML 10ML SYR IV PRN (06:39)
[2025-01-16] MEDS: TRANEXAMIC ACID 1,000 MG **IV Pre-op IV SCH (06:39)
[2025-01-16] MEDS ORDERED: ONDANSETRON INJ 2 MG/ML 2 ML VIAL IV PRN (06:39)
--- NOTE | 2025-01-16 06:49 | History & Physical Bridge Note ---
Date of Service January 16, 2025 History & Physical Bridge Note I have examined the patient, reviewed the History & Physical and in the interval since the performance of the History & Physical I have noted the following changes of clinical significance: no changes noted
[2025-01-16] MEDS ORDERED: PHENYLEPHRINE 100MCG/ML 5ML SYR ONE (07:11)
[2025-01-16] MEDS ORDERED: PHENYLEPHRINE HCL 10 MG/ML VIAL ONE (07:13)
[2025-01-16] MEDS: ORTHO JOINT ANESTHETIC ONE (07:50)
[2025-01-16] MEDS: ROPIV 0.5% 246mg, Ketorolac 30mg, EPINEPHrine 0.5mg in NSS INFIL SCH (08:10)
--- NOTE | 2025-01-16 09:40 | XRay Report ---
XR knee LT 1 or 2V routine CLINICAL HISTORY: Surgical Post Op COMPARISON: None FINDINGS: Left knee prosthesis shows no hardware complication. There is expected soft tissue gas. IMPRESSION: Unremarkable postoperative exam. ACT 112: Negative or not required by law. Electronically signed by: Cash Piper M.D. 01/16/2025 9:39 AM
[2025-01-16] MEDS ORDERED: NALOXONE HCL 0.4 MG/1 ML VIAL/CARP IV PRN (12:04)
[2025-01-16] MEDS ORDERED: HYDROmorphone INJ 0.5 MG/0.5 ML SYR IV PRN (12:04)
[2025-01-16] MEDS ORDERED: MAGNESIUM HYDROXIDE SUSP 30 ML UDC PO PRN (12:04)
[2025-01-16] MEDS ORDERED: METOCLOPRAMIDE HCL INJ 5 MG/ML 2 ML VIAL IV PRN (12:04)
[2025-01-16] MEDS: SODIUM CHLORIDE 0.9% 1,000 ML IV SCH (12:10)
[2025-01-16] MEDS: KETOROLAC TROMETHAMINE 15 MG/ML VIAL IV SCH (13:11)
[2025-01-16] MEDS: FENOFIBRATE NANOCRYSTALLIZED 145 MG TABLET PO SCH (13:11)
[2025-01-16] MEDS: VENLAFAXINE HCL XR 150 MG CAPXR PO SCH (13:11)
[2025-01-16] MEDS: DOCUSATE SODIUM 100 MG CAP PO SCH (13:11)
[2025-01-16] MEDS: MULTIVITAMIN TAB PO SCH (13:11)
[2025-01-16] MEDS: METOPROLOL SUCC 50MG EXT REL TAB PO SCH (13:11)
[2025-01-16] MEDS: ASPIRIN 81 MG ECTAB PO SCH (13:11)
[2025-01-16] MEDS: LEVOTHYROXINE SODIUM 50 MCG TABLET PO SCH (13:11)
--- NOTE | 2025-01-16 13:19 | Anesthesiology Progress Note ---
Date of Service January 16, 2025 Anesthesia Post Procedure Vital Signs Vital Signs: Temp Pulse Pulse Resp BP Pulse Ox O2 Del Method 01/16/25 12:55 36.8 C 61 16 116/68 98 Room Air 01/16/25 12:27 36.8 C 65 18 123/70 94 Room Air 01/16/25 12:05 36.5 C 65 16 130/67 97 Room Air 01/16/25 11:30 63 21 105/57 L 99 Nasal Cannula 01/16/25 11:00 65 16 107/54 L 99 Nasal Cannula 01/16/25 10:30 66 16 114/57 L 99 Nasal Cannula 01/16/25 10:15 67 12 113/58 L 99 Nasal Cannula 01/16/25 10:00 63 14 106/64 98 Nasal Cannula 01/16/25 09:45 63 14 119/63 99 Nasal Cannula 01/16/25 09:35 36.4 C L 63 14 132/68 99 Nasal Cannula 01/16/25 09:25 63 13 127/63 97 Nasal Cannula 01/16/25 09:15 63 12 115/59 L 98 Oxymask 01/16/25 09:05 63 20 134/71 100 Oxymask 01/16/25 08:55 60 12 99/58 L 100 Oxymask 01/16/25 08:47 36.6 C 63 13 109/58 L 93 Oxymask 01/16/25 05:48 36.7 C 61 18 178/80 H 99 Room Air O2 Flow Rate 01/16/25 12:55 01/16/25 12:27 01/16/25 12:05 01/16/25 11:30 2 01/16/25 11:00 2 01/16/25 10:30 2 01/16/25 10:15 2 01/16/25 10:00 2 01/16/25 09:45 2 01/16/25 09:35 2 01/16/25 09:25 2 01/16/25 09:15 4 01/16/25 09:05 4 01/16/25 08:55 8 01/16/25 08:47 8 01/16/25 05:48 Transfer of Care Handoff Completed per policy Notes Mental Status: alert / awake / arousable Patient Amnestic to Procedure: Yes Nausea / Vomiting: adequately controlled Pain: adequately controlled Airway Patency, RR, SpO2: stable & adequate BP & HR: stable & adequate Hydration State: stable & adequate Neuraxial Anesthesia: was administered and sensory block is resolving Anesthetic Complications: no major complications apparent and Pt Satisfied with anesthetic care
[2025-01-16 15:11] VITALS: RESP 18
--- NOTE | 2025-01-16 17:22 | Operative Report ---
PG Post Operative Report Pre & Post Diagnosis Operation Date: 01/16/25 07:00 Pre-Op Diagnosis: Osteoarthritis of left knee Post-Op Diagnosis: Osteoarthritis of left knee I identified the patient and participated in the time-out.: Yes Procedure Operation Date: 01/16/25 07:00 Actual Procedures p Robotic Assisted Left Total Knee Arthroplasty(Left) - Brandyn Gallego DO Surgeon Brandyn Gallego DO Adult Educator Felipe Guzman PA-C Estimated Blood Loss 30 Findings Consistent with Post-Op Diagnosis Specimens Left femoral and tibial bone Description of Procedure Implants used: I used a [employer] Person[employer] total knee arthroplasty system with a size 3 standard CR femur, D tibia, 25 oval patella, and a size 13 medial congruent polyethylene bearing. All components were cemented in place with Biomet cement. Brissa arrived [facility] for the above procedure. She was seen in the preoperative holding area and the operative extremity was identified and signed. She was given a preoperative antibiotic, TXA, a spinal anesthetic and an adductor nerve block. She was taken back to the operating room and laid on the table in supine position. She was given basic sedation. The operative knee was then prepped and draped in sterile fashion. A timeout was done, and the patient and the operative extremity was properly identified. A midline incision was made directly over the patella. Dissection was taken down to the extensor mechanism. A medial parapatellar arthrotomy was used. The medial retinaculum was released and the fat pad was mostly excised. The knee was flexed and the ACL, PCL, and meniscus were removed. The alignment of the knee replacement was assisted with a [email or web address] robotic knee. The femoral array was pinned in the distal femur and the tibial array was pinned using a percutaneous technique in the upper shaft of the tibia. The robot was appropriately calibrated and the structure of the knee was mapped out. The components were then manipulated on the screen to account for any malalignment and to assist in gap balancing. Once I was happy with the placeme nt of the components on the screen, a distal femoral cutting guide was brought in place. The distal femur was then resected. The femur measured to be a size 3. A 4-in-1 cutting block was then put into place by the robot and 2 peg holes were drilled. The 4-in-1 cutting block was then impacted into place and anterior, posterior, and chamfer cuts were made. The cutting block was then brought down to the tibia and pinned into place. The proximal tibia was then resected. The posterior aspect of the knee was then opened up and any additional meniscus fragments and osteophytes were removed. The tibia measured to be a size D. The tibial plate was then placed in the appropriate rotation and the tibia was drilled and punched. Trial components were then placed. The patella was then everted and 9 mm was resected off the posterior aspect of the patella. The patella measured to be a size 25 oval. 3 peg holes were then drilled. A trial patella was placed. A size 13 medial congruent polyethylene insert was then trialed. The knee was brought through a full range of motion and felt to be stable. Trial components were then removed. The surrounding soft tissues were injected with 100 cc of an orthopedic pain control cocktail. All components were then cemented into place with Biomet cement. The final polyethylene insert was then snapped into place. Once cement was dry the tourniquet was deflated. Hemostasis was obtained. A dilute betadyne lavage was then done for 3 minutes. The joint was then irrigated with normal saline solution. The medial parapatellar arthrotomy was then closed with #1 Vicryl suture. The skin was closed with 2-0 Vicryl, 3-0V lock suture, and [place] zip line. A soft compressive dressing was placed. She was then transferred to a hospital bed and taken to the postanesthesia care unit in stable condition. She tolerated the procedure well. Felipe Guzman PA-C, was present for the entire procedure. He was critical for patient positioning, prepping, draping, retraction exposure, wound closure and application of sterile dressing. I attest to the content of the Intraoperative Record and any orders documented therein. Any exceptions are noted below.
[2025-01-16] MEDS: SENNA 8.6 MG TAB PO SCH (21:13)
[2025-01-16] MEDS: NIFEdipine EXTENDED REL 30 MG TABCR PO SCH (21:13)
[2025-01-16] MEDS: ESCITALOPRAM OXALATE 10 MG TAB PO SCH (21:13)
[2025-01-17] MEDS: LORazepam 0.5 MG TAB PO PRN (00:14)
[2025-01-17 04:00] VITALS: TEMP 98.1
[2025-01-17 07:23] VITALS: BP 126/70; PULSE 60; O2SAT 97
[2025-01-17] MEDS: ONDANSETRON INJ 2 MG/ML 2 ML VIAL IV PRN (07:26)
--- NOTE | 2025-01-17 07:51 | Orthopedic Progress Note ---
Date of Service January 17, 2025 Assessment & Plan (1) Status post total left knee replacement: Overall she is doing fairly well. She is not having much pain in the left knee. She will be seen by physical therapy today for ambulation and range of motion exercises. The nursing staff can change her dressing after physical therapy. She is on aspirin for DVT prophylaxis. She can be discharged home later today. She will follow-up with orthopedics in 2 weeks. Subjective Brissa was seen and examined at bedside this morning. Overall she is doing very well. She is not having much pain in the left knee. She has been up and ambulating to the bathroom. She has no complaints.. Review of Systems All systems reviewed & are unremarkable except as noted in HPI & below. Physical Exam On physical exam of the left knee, the dressing is clean and dry. Her leg is out full extension. She has active dorsiflexion plantarflexion of her left ankle.. Results & Data Results & Data Laboratory Results . Diagnostic Findings Postoperative x-rays of the left knee show the prosthesis to be in anatomic alignment without any evidence of fracture complication, or loosening.. PG Care Time/CCT Total # of Minutes Spent Total Time Spent with Patient: Total time spent is greater than 50% in coordination of care (as documented) at patient's floor/unit and/or counseling patient: Coding Level of Care Code 47666 Post Operative Follow-Up Diagnoses Status post total left knee replacement Z96.652
== END 2025-01-17 10:47 | disposition home health service (06) ==
LOC: ASU 05:25 → PACUINP 05:25 → 3W 12:03